=== PATIENT | female | born 2000 | race Caucasian/White ===

== ENCOUNTER 2023-01-15 12:16 | Outpatient (CLI) | payer OTHER, SELFPAY ==
--- NOTE | ~2023-01-15 | US_ITS ---
EXAMINATION: US OB transvaginal, US OB /maternal detail DATE: 01/15/2023 13:16 (accession [id number]), 01/15/2023 13:13 (accession [id number]) INDICATION: Cervical length. survey. TECHNIQUE: Multiple obstetric sonographic images performed. FINDINGS: No prior studies for comparison. There is a single living fetus in vertex presentation. The placenta is posterior/fundal without plac enta previa. Cervical length is 4.1 cm. Amniotic fluid volume is subjectively normal. cardiac activity and movement is noted with a heart rate of 155 beats per minute. The following anatomy was identified as normal: 4 chamber heart 3 vessel cord cord insertion kidneys urinary bladder stomach spine diaphragm ventricles cisterna magna cerebellum The following biometric data were obtained: BPD: 48mm corresponds to gestational age 20 weeks 3 days. Head circumference: 177 mm corresponds to gestational age 20 weeks 1 days. Abdominal circumference: 150 mm corresponds to gestational age 20 weeks 2 days. Femur length: 36 mm corresponds to gestational age 21 weeks 2 days. Head circumference to abdominal circumference ratio: 1.18 (normal range for expected gestational age is 1.07-1.25). Estimated weight: 369 grams +/- 55 grams using Hadlock method. IMPRESSION: 1: Single living intrauterine with an estimated gestational age of 20weeks 4days by current ultrasound measurements, with an EDC of 05/31/2023 in vertex presentation. 2. Normal survey. Reviewed, dictated and finalized at location L. IMPRESSION: 1: Single living intrauterine with an estimated gestational age of 20 weeks 4days by current ultrasound measurements, with an EDC of 05/31/2023 in ve rtex presentation. 2. Normal survey.
== END 2023-01-15 12:17 | disposition home or self-care (01) ==
LOC: CHSIMG 12:18
PROVIDERS: PCP Nurse Practitioner Family; Visit Provider Obstetrics & Gynecology Gynecologic Oncology
DX: Z36.9 Encounter for antenatal screening, unspecified (principal); Z3A.20 20 weeks gestation of pregnancy
CPT/HCPCS: 76805; 76817

== ENCOUNTER 2023-03-13 12:09 | Outpatient (CLI) | payer OTHER, SELFPAY ==
[2023-03-13 13:25] LABS: Basophils Absolute Auto 0.02 K/mm3 (0.00-0.10); Basophils Percent Auto 0.2 % (0.0-1.0); Eosinophils Percent Auto 0.9 % (1.0-6.0); Hematocrit 32.6 % (35.0-49.0); Hemoglobin 10.9 g/dL (12.0-15.0); Immature Granulocyte Absolute 0.07 K/mm3 (0.00-0.00); Immature Granulocyte Percent A 0.6 % (0.0-0.0); Lymphocytes Absolute Auto 1.94 K/mm3 (1.10-4.50); Lymphocytes Percent Auto 17.4 % (18.0-42.0); Mean Corpuscular HGB Conc 33.4 g/dL (32.0-36.0); Mean Corpuscular Hemoglobin 30.4 pg (27.0-31.0); Mean Corpuscular Volume 91.1 fL (78.0-102.0); Mean Platelet Volume 10.9 fl (9.2-11.8); Monocytes Absolute Auto 0.68 K/mm3 (0.10-0.90); Monocytes Percent Auto 6.1 % (2.0-11.0); Neutrophils Absolute Auto 8.3 K/mm3 (1.7-7.2); Neutrophils Percent Auto 74.8 % (50.0-70.0); Platelet Count Result 224 K/mm3 (150-420); Red Blood Count 3.58 M/mm3 (4.20-5.40); Red Cell Distribution Width 13.4 % (11.6-14.4); White Blood Count 11.1 K/mm3 (4.8-10.8)
[2023-03-13 14:23] LABS: Glucose 1 Hour PP 50gm Dose 105 mg/dL (70-130)
[2023-03-13 14:32] LABS: HIV 1 P24 AG Negative (Negative); HIV 1/2 AB Negative (Negative)
== END 2023-03-13 12:10 | disposition home or self-care (01) ==
LOC: CHSLAB 12:12
PROVIDERS: PCP Nurse Practitioner Obstetrics & Gynecology; Visit Provider Nurse Practitioner Obstetrics & Gynecology
DX: Z36.9 Encounter for antenatal screening, unspecified (principal); O99.210 Obesity complicating pregnancy, unspecified trimester
CPT/HCPCS: 36415; 82947; 85025; 86780; 86850; 87806